=== PATIENT | male | born 1955 | race Caucasian/White ===

== ENCOUNTER 2021-03-14 00:14 | Day surgery (SDC) | payer MEDICARE, SELFPAY ==
[2021-02-28 14:31] VITALS: BMI 33.0
--- NOTE | 2021-03-14 08:45 | PM.HPGS ---
History of Present Illness History of Present Illness Consent: Risks, benefits, and alternatives have been discussed and questions answered. Patient agrees to proceed with procedure. Chief complaint: hx of colon polyps Narrative: Remi Evans is a 65 year old male Here for colon cancer screening. He has a history of polyps Review of Systems Review of Systems: All systems reviewed & are unremarkable except as noted in HPI and below PMFSH Social History Social History Smoking status: Former smoker Smokeless tobacco user: chewing tobacco and snuff Substance use: current Substance use type: marijuana Living arrangements: with family Spiritual care concerns: No Meds Home Medications and Allergies Home Medications Medication Instructions Recorded Confirmed Type Colace 1 caplet PO PRN 02/28/21 02/28/21 History Collagen Plus Vitamin C 1 caplet PO DAILY 02/28/21 02/28/21 History albuterol sulfate 2 puff INHALATION PRN 02/28/21 02/28/21 History alprazolam 0.5 mg PO PRN 02/28/21 02/28/21 History escitalopram oxalate 20 mg PO DAILY 02/28/21 02/28/21 History hydrocodone-acetaminophen 1 tablet PO PRN 02/28/21 02/28/21 History simvastatin 40 mg PO DAILY 02/28/21 02/28/21 History Allergies Allergy/AdvReac Type Severity Reaction Status Date / Time No Known Allergies Allergy Verified 03/14/21 08:49 Exam Resp: Auscultation: clear to auscultation bilaterally Cardio: Rate: regular rate Rhythm: regular rhythm GI: GI Palp: Yes Soft to palpation and No Tenderness to palpation present (GI) Assessment and Plan Assessment and plan (1) Colon cancer screening: Code(s): Z12.11 - Encounter for screening for malignant neoplasm of colon Status: Acute Assessment and Plan: Colonoscopy with possible biopsy or polypectomy or cautery or injection of substances.
[2021-03-14 08:51] VITALS: BP 137/83; PULSE 74; RESP 20; TEMP 36.3; O2SAT 97; BMI 35.0
[2021-03-14] MEDS: LACTATED RINGERS 1,000 ML 150 ML IV CONT (08:54)
--- NOTE | 2021-03-14 09:09 | WPDANESEPPF ---
Anes - Initial Pre Proc Eval Procedure: Operation Date: 03/14/21 09:30 Proposed Procedures p Screening Colonoscopy - Ajay Rao MD Date/Time: 03/14/21 09:09 Surgeon: Ajay Rao MD Pre Op Diagnosis: hx of colon polyps Patient Data Age: 65 Gender: M Height: 1.85 m Weight: 120.5 kg Last Vital Signs Temp 97.4 F L 03/14/21 08:51 Pulse 74 03/14/21 08:51 Resp 20 03/14/21 08:51 BP 137/83 03/14/21 08:51 Pulse Ox 97 03/14/21 08:51 Allergies Allergy/AdvReac Type Severity Reaction Status Date / Time No Known Allergies Allergy Verified 03/14/21 08:49 Home Medications Medication Instructions Recorded Confirmed Type Colace 1 caplet PO PRN 02/28/21 03/14/21 History Collagen Plus Vitamin C 1 caplet PO DAILY 02/28/21 02/28/21 History albuterol sulfate 2 puff INHALATION PRN 02/28/21 03/14/21 History alprazolam 0.5 mg PO PRN 02/28/21 02/28/21 History escitalopram oxalate 20 mg PO DAILY 02/28/21 03/14/21 History hydrocodone-acetaminophen 1 tablet PO PRN 02/28/21 02/28/21 History simvastatin 40 mg PO DAILY 02/28/21 02/28/21 History Patient hx anesthesia problems: none Family hx anesthesia problems: none PMFSH Social History Social History Smoking status: Former smoker Smokeless tobacco user: chewing tobacco and snuff Substance use: current Substance use type: marijuana Living arrangements: with family Spiritual care concerns: No Anes - Eval Final PreProcedure Day of Procedure 03/14/21 09:09 Patient weight: obese Heart: regular rate and rhythm Lungs: clear to auscultation Airway: Mallampati scale class II Neurological: alert and oriented Last oral intake: >/= 8 hours ASA classification: III Emergent: no Anesthetic plan: proceed Anesthesia type and monitoring: general GIVS and standard monitoring Informed Consent: The patient's anesthetic plan and its attendant risks and benefits were discussed with the patient/family/POA. Questions were solicited and answers provided to the satisfaction of the patient/family/POA.
[2021-03-14 09:38] VITALS: BP 96/49; PULSE 78; RESP 22; O2SAT 98
[2021-03-14 09:48] VITALS: BP 99/54; PULSE 67; RESP 24; O2SAT 98
[2021-03-14 09:58] VITALS: BP 103/53; PULSE 66; RESP 20; O2SAT 99
== END 2021-03-14 10:07 | disposition home or self-care (01) ==
PROVIDERS: PCP Internal Medicine; Visit Provider Internal Medicine Gastroenterology
PROC: 0DJD8ZZ Inspection of Lower Intestinal Tract, Via Natural or Artificial Opening Endoscopic (ICD-10-PCS; CPT 45378; principal; 2021-03-14 09:30)
DX: Z12.11 Encounter for screening for malignant neoplasm of colon (principal); K62.1 Rectal polyp; K57.30 Diverticulosis of large intestine without perforation or abscess without bleeding; K64.8 Other hemorrhoids; F12.90 Cannabis use, unspecified, uncomplicated; Z79.51 Long term (current) use of inhaled steroids; E66.9 Obesity, unspecified; Z68.35 Body mass index [BMI] 35.0-35.9, adult
CPT/HCPCS: 45380; 88305; J2704; J7120